=== PATIENT | female | born 1935 | race Caucasian/White ===

== ENCOUNTER 2017-09-01 13:09 | Emergency (ER) | payer BC, OTHER ==
[2017-09-01] MEDS: morphine 2 MG INJ IV ×2 (14:00→14:56)
[2017-09-01] MEDS: ONDANSETRON 4 MG INJ IV ×2 (14:00→14:56)
[2017-09-01 14:08] LABS: ADD MAN DIFF? NO
[2017-09-01 14:09] LABS: BASOPHIL # 0.1 10^3/ul (0.0-0.1); BASOPHILS % 0.4 % (0.0-2.0); EOSINOPHILS # 0.1 10^3/ul (0.0-0.5); EOSINOPHILS % 0.7 % (0.0-7.0); HEMATOCRIT 40.6 % (37.0-47.0); HEMOGLOBIN 13.4 g/dl (12.0-16.0); LYMPHOCYTES # 2.4 10^3/ul (0.8-2.9); LYMPHOCYTES % 17.1 % (15.0-51.0); MEAN CORPUSCULAR HEMOGLOBIN 33.1 pg (29.0-33.0); MEAN CORPUSCULAR VOLUME 100.2 fl (82.0-101.0); MEAN PLATELET VOLUME 9.9 fl (7.4-10.4); MONOCYTE # 1.1 10^3/ul (0.3-0.9); MONOCYTES % 7.9 % (0.0-11.0); NEUTROPHIL # 10.3 10^3/ul (1.6-7.5); NEUTROPHILS % 73.5 % (39.0-77.0); PLATELET COUNT 334 10^3/UL (140-415); RED BLOOD COUNT 4.05 10^6/ul (4.20-5.40); RED CELL DISTRIBUTION WIDTH 12.2 % (11.5-14.5)
[2017-09-01 14:27] LABS: ANION GAP 14 (8-16); BLOOD UREA NITROGEN 17 mg/dl (7-20); CALCIUM 10.5 mg/dl (8.4-10.2); CARBON DIOXIDE 29 mmol/L (21-31); CHLORIDE 103 mmol/L (97-110); CREATININE 1.15 mg/dl (0.44-1.00); GLUCOSE 138 mg/dl (70-220); POTASSIUM 3.7 mmol/L (3.5-5.1); SODIUM 142 mmol/L (135-144); URIC ACID 8.1 mg/dl (3.1-7.9)
[2017-09-01 14:41] LABS: TROPONIN-I < 0.012 ng/ml (0.00-0.12)
[2017-09-01] MEDS: PANTOPRAZOLE (EC) 40 MG TAB PO (16:30)
[2017-09-01] MEDS: HYDROCODONE/APAP (10/325) TAB PO (16:30)
[2017-09-01] MEDS: predniSONE 20 MG TAB PO (16:30)
== END 2017-09-01 23:20 | disposition short-term general hospital (02) ==
LOC: E/R 13:09
DX: M10.9 Gout, unspecified (principal); I10 Essential (primary) hypertension
CPT/HCPCS: 36415; 71045; 73630-LT; 80048; 84484; 84560; 85025; 93005; 93971; 99285-25